=== PATIENT | female | born 1985 | race Hispanic/Latino ===

== ENCOUNTER 2016-06-12 20:46 | Emergency (ER) | payer OTHER ==
[2016-06-12] MEDS ORDERED: NAPROXEN 250 MG TAB As Ordered ONE (21:49)
--- NOTE | 2016-06-13 | REPUSA ---
CLINICAL HISTORY: Flank pain TECHNIQUE: Ultrasound of the pelvis was performed. Doppler spectral analysis and color flow imaging w ere performed to evaluate the adnexa. ULTRASOUND PELVIS : Uterus: 8.2 x 4.5 x 5.7 cm. Normal without masses. Endometrial stripe: 10 mm thickness. Right ovary: 3.9 x 2.3 x 3.4 cm. Normal size. No masses. Normal vascular flow. Left ovary: 2.0 x 1.2 x 1.4 cm. Normal size. No masses. Normal vascular flow. Pelvic fluid: Physiologic. IMPRESSION: Normal pelvic ultrasound.
--- NOTE | 2016-06-13 00:59 | EDDOCDS ---
Nurse's Notes [facility] Name: Lauren Mcgee Age: 30 yrs Sex: Female : 1985 Arrival Date: 06/12/2016 Time: 20:46 Bed TR8 Private MD: LENCHO Ramos Diagnosis: Pelvic and perineal pain-left Presentation: 06/12 20:52 Presenting complaint: Patient states: LLQ pain that's started 2 weeks ago. Acute dsf neurological deficits are not present. Mechanism of Injury: No Mechanism of Injury. Adult Sepsis Screening: The patient does not have new or worsening altered mentation. Patient's respiratory rate is less than 22. Systolic blood pressure is greater than 100. Patient has a qSOFA score of 0- Negative Sepsis Screen. Suicide/Homicide risk assessment- the patient denies having any suicidal and/or homicidal ideations and does not present with any other emotional, behavioral or mental health complaints. 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 Transition of care: patient was not received from another setting of care. 20:52 Acuity: YOANA Level 3 dsf 20:52 Method Of Arrival: Walkin/Carried/Asstd dsf Triage Assessment: 20:53 General: Appears in no apparent distress, Behavior is appropriate for age, cooperative. dsf Pain: Location: left lower quadrant Pain currently is 2 out of 10 on a pain scale. Pain does not radiate. Quality of pain is described as sharp. HIV screening NA for this visit active duty . Musculoskeletal: Circulation, motion, and sensation intact. 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 control daily (Last dose: 06/11/2016) - PMHx: none; - PSHx: none; - Social history: Smoking status: Patient states was never smoker of tobacco. No barriers to communication noted, The patient speaks fluent Serbian, Speaks appropriately for age. - Family history: Not pertinent. - : The pt / caregiver states he / she is not on anticoagulants. Home medication list is obtained from the patient. - Exposure Risk Screening:: None identified. Screenin/08 00:55 Screening information is obtained from the patient. Fall risk: No risks identified. cz Assistance ADL's: requires no assistance with activities of daily living. Abuse/DV Screen: The patient / caregiver reports he/she is: not in a situation that causes fear, pain or injury. Nutritional screening: No deficits noted. home support is adequate. Assessment: 00:55 Reassessment: Patient appears in no apparent distress at this time. Patient states cz symptoms have improved. Vital Signs: 06/12 20:47 BP 121 / 81; Pulse 81; Resp 18; Temp 96.9; Pulse Ox 100% ; Weight 63.5 kg; Height 5 ft. elp 2 in. (157.48 cm); Pain 3/10; 06/13 00:56 BP 122 / 76; Pulse 76; Resp 16; Temp 97.1(T); Pulse Ox 98% on R/A; cz 06/12 20:47 Body Mass Index 25.61 (63.50 kg, 157.48 cm) elp Vitals: 06/12 20:47 Log In Time: June 12, 2016 at 20:45. elp ED Course: 20:47 Patient visited by Sharri Davis PCA. elp 20:47 LENCHO Raoms is Private Physician. elp 20:47 Patient moved to Waiting elp 20:48 Patient visited by Sharri Davis PCA. elp 20:48 Patient moved to Pre RCE elp 20:53 Triage Initiated dsf 21:33 Patient moved to Triage 2 jf3 21:37 [facility]ant[facility] cc10 21:37 Carlos A Jolley DO is Attending Physician. cc10 21:37 Patient visited by Gonzalez Alcantar PA-C. cc10 21:37 Patient visited by Gonzalez Alcantar PA-C. cc10 21:52 Patient moved to TR1 mcp 21:52 UA Sent. jmv 22:14 Patient visited by Toño Lopez PCA. jmv 06/13 00:19 Patient moved to PR1 / 25 mcp 00:21 -US Pelvic Non-Ob Complete Returned. EDMS 00:24 LENCHO Ramos is Referral Physician. cc10 00:37 Patient moved to TR8 cz 00:55 The patient / caregiver is instructed regarding the plan of care and ED course. cz 00:55 No IV's were initiated during this patient's visit. No procedures done that require cz assistance. Administered Medications: 06/12 21:52 Drug: Naproxen 500 mg [naproxen 250 mg tablet (2 tabs)] Route: PO; [facility] Point of Care Testing: Urine : 22:13 hCG Reading: Negative; Control Reading: Positive; jmv 22:14 hCG Reading: Negative; cz Ranges: Order Results: Lab Order: UA; SPEC'M 06/12/16 21:59 Test: APPEARANCE, URINE; Value: HAZY; Range: CLEAR; Status: F Test: COLOR, URINE; Value: YELLOW; Range: YELLOW; Status: F Test: PH,URINE; Value: 6.0; Range: 5.0-9.0; Units: UNITS; Status: F Test: SPECIFIC GRAVITY URINE AUTO; Value: 1.026; Range: 1.002-1.035; Status: F Test: PROTEIN, URINE AUTO; Value: NEGATIVE; Range: NEGATIVE; Units: mg/dL; Status: F Test: GLUCOSE, URINE (UA) AUTO; Value: NEGATIVE; Range: NEGATIVE; Units: mg/dL; Status: F Test: KETONE, URINE AUTO; Value: NEGATIVE; Range: NEGATIVE; Units: mg/dL; Status: F Test: UROBILINOGEN, URINE AUTO; Value: 0.2; Range: 0.0-2.0; Units: mg/dL; Status: F Test: BILIRUBIN, URINE AUTO; Value: NEGATIVE; Range: NEGATIVE; Status: F Test: NITRITE, URINE AUTO; Value: NEGATIVE; Range: NEGATIVE; Status: F Test: LEUKOCYTE ESTERASE, URINE AUTO; Value: NEGATIVE; Range: NEGATIVE; Status: F Test: BLOOD, URINE BLOOD; Value: NEGATIVE; Range: NEGATIVE; Status: F Test: WBC, URINE AUTO; Value: 1; Range: 0-3; Units: /HPF; Status: F Test: RBC, URINE AUTO; Value: 3; Range: 0-3; Units: /HPF; Status: F Test: BACTERIA, URINE AUTO; Value: NEGATIVE; Range: NEGATIVE; Status: F Test: SQUAMOUS EPITHELIAL CELL UR AU; Value: 2; Range: 0-6; Units: /HPF; Status: F Test: MUCUS, URINE; Value: SMALL; Range: NEGATIVE; Status: F Test: HYALINE CAST, URINE AUTO; Value: 0; Range: 0-1; Units: /LPF; Status: F Radiology Order: -US Pelvic Non-Ob Complete Test: -US Pelvic Non-Ob Complete REASON FOR EXAMINATION: Adnexal Pain r/o Torsion; ; CLINICAL HISTORY: Flank pain; TECHNIQUE: Ultrasound of the pelvis was performed. Doppler spectral analysis and color flow imaging w; ere performed to evaluate the adnexa.; ; ULTRASOUND PELVIS :; ; Uterus: 8.2 x 4.5 x 5.7 cm. Normal without masses.; ; Endometrial stripe: 10 mm thickness.; ; Right ovary: 3.9 x 2.3 x 3.4 cm. Normal size. No masses. Normal vascular flow.; ; Left ovary: 2.0 x 1.2 x 1.4 cm. Normal size. No masses. Normal vascular flow.; ; Pelvic fluid: Physiologic.; ; IMPRESSION: Normal pelvic ultrasound.; ; Outcome: 06/13 00:24 Discharge ordered by Provider. cc10 00:55 Discharge Assessment: Patient awake, alert and oriented x 3. No cognitive and/or cz functional deficits noted. Patient verbalized understanding of disposition instructions. patient administered narcotics - no. The following High Risk Discharge criteria are identified: None. Discharged to home ambulatory. Condition: stable. Discharge instructions given to patient, Instructed on discharge instructions, follow up and referral plans. medication usage, Demonstrated understanding of instructions, medications, Pt was receptive of discharge instructions/ teaching. Prescriptions given X 1. Property :Personal belongings accompany Pt. 00:56 Ultrasound Study completed. cz 00:58 Patient left the ED. cz Signatures: Dispatcher [employer] EDCT Margret Grossman RN RN mcp Zecher, Calvin, RN RN cz Fuller, Desiree, RN RN Sharri Wilson, OPERATIONS RESEARCH DIRECTOR OPERATIONS RESEARCH DIRECTOR elp Gonzalez Alcantar, PA-C PA-C cc10 Viktor Arias,Toño Merritt RN, OPERATIONS RESEARCH DIRECTOR OPERATIONS RESEARCH DIRECTOR jmv MTDD
--- NOTE | 2016-06-13 00:59 | EDDOCDS ---
Physician Documentation [facility] Name: Lauren Mcgee Age: 30 yrs Sex: Female : 1985 Arrival Date: 06/12/2016 Time: 20:46 Bed TR8 Private MD: LENCHO Ramos Disposition: 06/13/16 00:24 Discharged to Home/Self Care. Impression: Pelvic and perineal pain - left. - Condition is Stable. - Discharge Instructions: Pelvic Pain, Female. - Prescriptions for Naprosyn 500 mg Oral Tablet - take 1 tablet by ORAL route 2 times per day take with food; 30 tablet. - Medication Reconciliation, Local Pharmacy Hours form. - Follow up: Emergency Department; When: As needed. Follow up: LENCHO Ramos; When: Call to arrange an appointment; Reason: Wound/Symptom Recheck, Recheck today's complaints, Worsening of conditions, Continuance of care. - Problem is an ongoing problem. - Symptoms have improved. Historical: - Allergies: no known allergies; - Home Meds: 1. control daily (Last dose: 06/11/2016) - PMHx: none; - PSHx: none; - Social history: Smoking status: Patient states was never smoker of tobacco. No barriers to communication noted, The patient speaks fluent Vietnamese, Speaks appropriately for age. - Family history: Not pertinent. - : The pt / caregiver states he / she is not on anticoagulants. Home medication list is obtained from the patient. - Exposure Risk Screening:: None identified. 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 2 in. (157.48 cm); Pain 3/10; 06/13 00:56 BP 122 / 76; Pulse 76; Resp 16; Temp 97.1(T); Pulse Ox 98% on R/A; cz 06/12 20:47 Body Mass Index 25.61 (63.50 kg, 157.48 cm) elp MDM: 06/12 21:42 UCG by Nursing ordered. cc10 21:43 -US Pelvic Non-Ob Complete Ordered. EDMS 21:43 Naproxen 500 mg PO once; administer with food or milk ordered. cc10 21:43 DUPLEX SCAN LIMITED (DOPPLER)+US Ordered. EDMS 21:43 UA Ordered. EDMS 22:16 UA Reviewed. cc10 06/13 00:33 Financial registration complete. hs2 Point of Care Testing: Urine : 06/12 22:13 hCG Reading: Negative; Control Reading: Positive; jmv 22:14 hCG Reading: Negative; cz Ranges: Administered Medications: 21:52 Drug: Naproxen 500 mg [naproxen 250 mg tablet (2 tabs)] Route: PO; [facility] Signatures: Dispatcher [employer] EDShaheen Lopez RN RN cz Fuller, Desiree, RN RN mary janef Gonzalez Alcantar, PALizeth PALizeth cc10 Amanda Rosales, Reg Reg hs2 Margret Grossman RN mcp MTDD
--- NOTE | 2016-06-15 12:14 | EDDOCDS ---
Nurse's Notes [facility] Name: Lauren Mcgee Age: 30 yrs Sex: Female : 1985 Arrival Date: 06/12/2016 Time: 20:46 Bed TR8 Private MD: LENCHO Ramos Diagnosis: Pelvic and perineal pain-left Presentation: 06/12 20:52 Presenting complaint: Patient states: LLQ pain that's started 2 weeks ago. Acute dsf neurological deficits are not present. Mechanism of Injury: No Mechanism of Injury. Adult Sepsis Screening: The patient does not have new or worsening altered mentation. Patient's respiratory rate is less than 22. Systolic blood pressure is greater than 100. Patient has a qSOFA score of 0- Negative Sepsis Screen. Suicide/Homicide risk assessment- the patient denies having any suicidal and/or homicidal ideations and does not present with any other emotional, behavioral or mental health complaints. 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 Transition of care: patient was not received from another setting of care. 20:52 Acuity: YOANA Level 3 dsf 20:52 Method Of Arrival: Walkin/Carried/Asstd dsf Triage Assessment: 20:53 General: Appears in no apparent distress, Behavior is appropriate for age, cooperative. dsf Pain: Location: left lower quadrant Pain currently is 2 out of 10 on a pain scale. Pain does not radiate. Quality of pain is described as sharp. HIV screening NA for this visit active duty . Musculoskeletal: Circulation, motion, and sensation intact. 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 control daily (Last dose: 06/11/2016) - PMHx: none; - PSHx: none; - Social history: Smoking status: Patient states was never smoker of tobacco. No barriers to communication noted, The patient speaks fluent Icelandic, Speaks appropriately for age. - Family history: Not pertinent. - : The pt / caregiver states he / she is not on anticoagulants. Home medication list is obtained from the patient. - Exposure Risk Screening:: None identified. Screenin/08 00:55 Screening information is obtained from the patient. Fall risk: No risks identified. cz Assistance ADL's: requires no assistance with activities of daily living. Abuse/DV Screen: The patient / caregiver reports he/she is: not in a situation that causes fear, pain or injury. Nutritional screening: No deficits noted. home support is adequate. Assessment: 00:55 Reassessment: Patient appears in no apparent distress at this time. Patient states cz symptoms have improved. Vital Signs: 06/12 20:47 BP 121 / 81; Pulse 81; Resp 18; Temp 96.9; Pulse Ox 100% ; Weight 63.5 kg; Height 5 ft. elp 2 in. (157.48 cm); Pain 3/10; 06/13 00:56 BP 122 / 76; Pulse 76; Resp 16; Temp 97.1(T); Pulse Ox 98% on R/A; cz 06/12 20:47 Body Mass Index 25.61 (63.50 kg, 157.48 cm) elp Vitals: 06/12 20:47 Log In Time: June 12, 2016 at 20:45. elp ED Course: 20:47 Patient visited by Sharri Davis PCA. elp 20:47 LENCHO Ramos is Private Physician. elp 20:47 Patient moved to Waiting elp 20:48 Patient visited by Sharri Davis PCA. elp 20:48 Patient moved to Pre RCE elp 20:53 Triage Initiated dsf 21:33 Patient moved to Triage 2 jf3 21:37 Gonzalez Alcantar [facility] cc[facility] 21:37 Carlos A Jolley DO is Attending Physician. cc10 21:37 Patient visited by Gonzalez Alcantar PA-C. cc10 21:37 Patient visited by Gonzalez Alcantar PA-C. cc10 21:52 Patient moved to TR1 mcp 21:52 UA Sent. jmv 22:14 Patient visited by Toño Lopez PCA. jmv 06/13 00:19 Patient moved to PR1 / 25 mcp 00:21 -US Pelvic Non-Ob Complete Returned. EDMS 00:24 LENCHO Ramos is Referral Physician. cc10 00:37 Patient moved to TR8 cz 00:55 The patient / caregiver is instructed regarding the plan of care and ED course. cz 00:55 No IV's were initiated during this patient's visit. No procedures done that require cz assistance. 04:05 [facility] Payment Agreement was scanned into [employer] and attached to record. hs2 08:15 T-Sheet-- Draft Copy was scanned into [employer] and attached to record. se 08:53 Radiology Report was scanned into [employer] and attached to record. gb Administered Medications: 06/12 21:52 Drug: Naproxen 500 mg [naproxen 250 mg tablet (2 tabs)] Route: PO; [facility] Point of Care Testing: Urine : 22:13 hCG Reading: Negative; Control Reading: Positive; jmv 22:14 hCG Reading: Negative; cz Ranges: Order Results: Lab Order: UA; SPEC'M 06/12/16 21:59 Test: APPEARANCE, URINE; Value: HAZY; Range: CLEAR; Status: F Test: COLOR, URINE; Value: YELLOW; Range: YELLOW; Status: F Test: PH,URINE; Value: 6.0; Range: 5.0-9.0; Units: UNITS; Status: F Test: SPECIFIC GRAVITY URINE AUTO; Value: 1.026; Range: 1.002-1.035; Status: F Test: PROTEIN, URINE AUTO; Value: NEGATIVE; Range: NEGATIVE; Units: mg/dL; Status: F Test: GLUCOSE, URINE (UA) AUTO; Value: NEGATIVE; Range: NEGATIVE; Units: mg/dL; Status: F Test: KETONE, URINE AUTO; Value: NEGATIVE; Range: NEGATIVE; Units: mg/dL; Status: F Test: UROBILINOGEN, URINE AUTO; Value: 0.2; Range: 0.0-2.0; Units: mg/dL; Status: F Test: BILIRUBIN, URINE AUTO; Value: NEGATIVE; Range: NEGATIVE; Status: F Test: NITRITE, URINE AUTO; Value: NEGATIVE; Range: NEGATIVE; Status: F Test: LEUKOCYTE ESTERASE, URINE AUTO; Value: NEGATIVE; Range: NEGATIVE; Status: F Test: BLOOD, URINE BLOOD; Value: NEGATIVE; Range: NEGATIVE; Status: F Test: WBC, URINE AUTO; Value: 1; Range: 0-3; Units: /HPF; Status: F Test: RBC, URINE AUTO; Value: 3; Range: 0-3; Units: /HPF; Status: F Test: BACTERIA, URINE AUTO; Value: NEGATIVE; Range: NEGATIVE; Status: F Test: SQUAMOUS EPITHELIAL CELL UR AU; Value: 2; Range: 0-6; Units: /HPF; Status: F Test: MUCUS, URINE; Value: SMALL; Range: NEGATIVE; Status: F Test: HYALINE CAST, URINE AUTO; Value: 0; Range: 0-1; Units: /LPF; Status: F Radiology Order: -US Pelvic Non-Ob Complete Test: -US Pelvic Non-Ob Complete REASON FOR EXAMINATION: Adnexal Pain r/o Torsion; ; CLINICAL HISTORY: Flank pain; TECHNIQUE: Ultrasound of the pelvis was performed. Doppler spectral analysis and color flow imaging w; ere performed to evaluate the adnexa.; ; ULTRASOUND PELVIS :; ; Uterus: 8.2 x 4.5 x 5.7 cm. Normal without masses.; ; Endometrial stripe: 10 mm thickness.; ; Right ovary: 3.9 x 2.3 x 3.4 cm. Normal size. No masses. Normal vascular flow.; ; Left ovary: 2.0 x 1.2 x 1.4 cm. Normal size. No masses. Normal vascular flow.; ; Pelvic fluid: Physiologic.; ; IMPRESSION: Normal pelvic ultrasound.; ; Outcome: 06/13 00:24 Discharge ordered by Provider. cc10 00:55 Discharge Assessment: Patient awake, alert and oriented x 3. No cognitive and/or cz functional deficits noted. Patient verbalized understanding of disposition instructions. patient administered narcotics - no. The following High Risk Discharge criteria are identified: None. Discharged to home ambulatory. Condition: stable. Discharge instructions given to patient, Instructed on discharge instructions, follow up and referral plans. medication usage, Demonstrated understanding of instructions, medications, Pt was receptive of discharge instructions/ teaching. Prescriptions given X 1. Property :Personal belongings accompany Pt. 00:56 Ultrasound Study completed. cz 00:58 Patient left the ED. cz Signatures: Dispatcher [employer] EDMS Margret Grossman RN RN mcp Zecher, Calvin, RN RN cz Marisel Marin, Reg Reg gb Gabriela Reed RN RN dsf Patchen, Erin, SCOREKEEPER SCOREKEEPER elp Ortiz, Gonzalez, PA-C PA-C cc10 Viktor Arias RN RN jf3 Amanda Rosales, Reg Reg hs2 Hoffert, Cherie seh Lopez, Toño, SCOREKEEPER SCOREKEEPER jmv Chart Complete MTDD
--- NOTE | 2016-06-15 12:14 | EDDOCDS ---
Physician Documentation [facility] Name: Lauren Mcgee Age: 30 yrs Sex: Female : 1985 Arrival Date: 06/12/2016 Time: 20:46 Bed TR8 Private MD: LENCHO Ramos Disposition: 06/13/16 00:24 Discharged to Home/Self Care. Impression: Pelvic and perineal pain - left. - Condition is Stable. - Discharge Instructions: Pelvic Pain, Female. - Prescriptions for Naprosyn 500 mg Oral Tablet - take 1 tablet by ORAL route 2 times per day take with food; 30 tablet. - Medication Reconciliation, Local Pharmacy Hours form. - Follow up: Emergency Department; When: As needed. Follow up: LENCHO Ramos; When: Call to arrange an appointment; Reason: Wound/Symptom Recheck, Recheck today's complaints, Worsening of conditions, Continuance of care. - Problem is an ongoing problem. - Symptoms have improved. Historical: - Allergies: no known allergies; - Home Meds: 1. control daily (Last dose: 06/11/2016) - PMHx: none; - PSHx: none; - Social history: Smoking status: Patient states was never smoker of tobacco. No barriers to communication noted, The patient speaks fluent Greek, Speaks appropriately for age. - Family history: Not pertinent. - : The pt / caregiver states he / she is not on anticoagulants. Home medication list is obtained from the patient. - Exposure Risk Screening:: None identified. 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 2 in. (157.48 cm); Pain 3/10; 06/13 00:56 BP 122 / 76; Pulse 76; Resp 16; Temp 97.1(T); Pulse Ox 98% on R/A; cz 06/12 20:47 Body Mass Index 25.61 (63.50 kg, 157.48 cm) elp MDM: 06/12 21:42 UCG by Nursing ordered. cc10 21:43 -US Pelvic Non-Ob Complete Ordered. EDMS 21:43 Naproxen 500 mg PO once; administer with food or milk ordered. cc10 21:43 DUPLEX SCAN LIMITED (DOPPLER)+US Ordered. EDMS 21:43 UA Ordered. EDMS 22:16 UA Reviewed. cc10 06/13 00:33 Financial registration complete. hs2 04:05 [facility] Payment Agreement was scanned into [employer] and attached to record. hs2 08:15 T-Sheet-- Draft Copy was scanned into [employer] and attached to record. [facility] 08:53 Radiology Report was scanned into [employer] and attached to record. Point of Care Testing: Urine : 06/12 22:13 hCG Reading: Negative; Control Reading: Positive; jmv 22:14 hCG Reading: Negative; cz Ranges: Administered Medications: 21:52 Drug: Naproxen 500 mg [naproxen 250 mg tablet (2 tabs)] Route: PO; [facility] Signatures: Dispatcher [employer] EDMS Shaheen Zapata RN RN cz Marisel Marin, Reg Reg gb Gabriela Reed RN RN dsf Gonzalez Alcantar, PA-C PA-C cc10 Amanda Rosales, Reg Reg hs2 Cherie Fuentes Mary RN [facility] The chart was reviewed and I authenticate all verbal orders and agree with the evaluation and treatment provided.Attachments: 06/13 04:05 [facility] Payment Agreement hs2 08:15 T-Sheet-- Draft Copy [facility] Chart Complete MTDD
--- NOTE | 2016-06-15 12:14 | EDDOCDS ---
Physician Documentation [facility] Name: Lauren Mcgee Age: 30 yrs Sex: Female : 1985 Arrival Date: 06/12/2016 Time: 20:46 Bed TR8 Private MD: LENCHO Ramos Disposition: 06/13/16 00:24 Discharged to Home/Self Care. Impression: Pelvic and perineal pain - left. - Condition is Stable. - Discharge Instructions: Pelvic Pain, Female. - Prescriptions for Naprosyn 500 mg Oral Tablet - take 1 tablet by ORAL route 2 times per day take with food; 30 tablet. - Medication Reconciliation, Local Pharmacy Hours form. - Follow up: Emergency Department; When: As needed. Follow up: LENCHO Ramos; When: Call to arrange an appointment; Reason: Wound/Symptom Recheck, Recheck today's complaints, Worsening of conditions, Continuance of care. - Problem is an ongoing problem. - Symptoms have improved. Historical: - Allergies: no known allergies; - Home Meds: 1. control daily (Last dose: 06/11/2016) - PMHx: none; - PSHx: none; - Social history: Smoking status: Patient states was never smoker of tobacco. No barriers to communication noted, The patient speaks fluent Polish, Speaks appropriately for age. - Family history: Not pertinent. - : The pt / caregiver states he / she is not on anticoagulants. Home medication list is obtained from the patient. - Exposure Risk Screening:: None identified. 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 2 in. (157.48 cm); Pain 3/10; 06/13 00:56 BP 122 / 76; Pulse 76; Resp 16; Temp 97.1(T); Pulse Ox 98% on R/A; cz 06/12 20:47 Body Mass Index 25.61 (63.50 kg, 157.48 cm) elp MDM: 06/12 21:42 UCG by Nursing ordered. cc10 21:43 -US Pelvic Non-Ob Complete Ordered. EDMS 21:43 Naproxen 500 mg PO once; administer with food or milk ordered. cc10 21:43 DUPLEX SCAN LIMITED (DOPPLER)+US Ordered. EDMS 21:43 UA Ordered. EDMS 22:16 UA Reviewed. cc10 06/13 00:33 Financial registration complete. hs2 04:05 [facility] Payment Agreement was scanned into [employer] and attached to record. hs2 08:15 T-Sheet-- Draft Copy was scanned into [employer] and attached to record. [facility] 08:53 Radiology Report was scanned into [employer] and attached to record. Point of Care Testing: Urine : 06/12 22:13 hCG Reading: Negative; Control Reading: Positive; jmv 22:14 hCG Reading: Negative; cz Ranges: Administered Medications: 21:52 Drug: Naproxen 500 mg [naproxen 250 mg tablet (2 tabs)] Route: PO; [facility] Signatures: Dispatcher [employer] EDMS Shaheen Zapata RN RN cz Marisel Marin, Reg Reg gb Gabriela Reed RN RN dsf Gonzalez Alcantar, PA-C PA-C cc10 Amanda Rosales, Reg Reg hs2 Cherie Fuentes Mary RN [facility] The chart was reviewed and I authenticate all verbal orders and agree with the evaluation and treatment provided.Attachments: 06/13 04:05 [facility] Payment Agreement hs2 08:15 T-Sheet-- Draft Copy [facility] Chart Complete MTDD
== END 2016-06-13 00:58 | disposition home or self-care (01) ==
LOC: M ED 20:46
DX: R10.2 Pelvic and perineal pain (principal); Z79.3 Long term (current) use of hormonal contraceptives

== ENCOUNTER 2017-02-09 09:53 | Outpatient (CLI) | payer OTHER ==
[~2017-02-09] VITALS: Ht 160 cm; Wt 87.0 kg
[2017-02-09 10:13] VITALS: BP 106/66
[2017-02-09] MEDS ORDERED: LR 1,000 ML IV ONE (11:00)
[2017-02-09 12:02] VITALS: BP 109/70
[2017-02-09] MEDS ORDERED: PRENTAB9 PO (13:06)
== END 2017-02-09 12:35 | disposition home or self-care (01) ==
LOC: M LDO 09:53
PROVIDERS: ATTEND Obstetrics & Gynecology
DX: O26.893 Other specified pregnancy related conditions, third trimester (principal); Z3A.37 37 weeks gestation of pregnancy; R42 Dizziness and giddiness; O62.0 Primary inadequate contractions

== ENCOUNTER 2017-03-04 05:51 | Inpatient (IN) | payer OTHER ==
[2017-03-04] VITALS (15 sets, daily range): BP systolic 102–133; BP diastolic 56–78
[~2017-03-04] VITALS: Ht 160 cm; Wt 91.7 kg
[~2017-03-04 05:51] MED LIST: PRENTAB9 PO
[2017-03-04] MEDS ORDERED: miSOPROStol 50 MCG 1/2 TAB (S0191) PO SCH (08:30)
[2017-03-04 08:40] LABS: MEAN CORPUSCULAR HEMOGLOBIN 30.7 pg (27.0-33.0); MEAN CORPUSCULAR HGB CONC 34.3 g/dl (32.0-36.5); MEAN CORPUSCULAR VOLUME 89.5 fl (80.0-96.0); RED CELL DISTRIBUTION WIDTH 14.4 % (11.5-14.5); WHITE BLOOD COUNT 9.7 10^3/uL (4.0-10.0)
[2017-03-04] MEDS ORDERED: OXYTOCIN 30 UNITS IN 0.9% NaCl 500ML IV BAG (J2590) As Ordered ONE (14:26)
[2017-03-04] MEDS ORDERED: OXYTOCIN DRIP 30 UNITS in APPROPRIATE DILUENT 1 EA IV SCH (14:30)
[2017-03-04] MEDS: LR 1,000 ML IV SCH ×2 (14:37→22:22)
[2017-03-04] MEDS ORDERED: PROMETHAZINE INJ 25 MG/ML VIAL (J2550) IV ONE (16:30)
[2017-03-04] MEDS ORDERED: BUTORPHANOL 2 MG/ML INJ (J0595) IV ONE (16:30)
[2017-03-04] MEDS ORDERED: FENTANYL 2MCG/ML ROPIVACAINE 0.2% IN 0.9% NACL 200ML IVBAG As Ordered ONE (21:10)
[2017-03-04] MEDS ORDERED: ePHEDrine SULFATE 25 MG/5 ML(5MG/ML) SYRINGE As Ordered ONE ×2 (23:13→23:26)
[2017-03-04] MEDS ORDERED: ONDANSETRON 4MG/2ML VIAL (J2405) IV PRN (23:30)
[2017-03-04] MEDS ORDERED: ePHEDrine SULFATE 25 MG/5 ML(5MG/ML) SYRINGE IV PRN (23:30)
[2017-03-04] MEDS ORDERED: FENTANYL/ROPIVACAINE/NACL BAG 200 ML EPIDURAL SCH (23:30)
[2017-03-04] MEDS ORDERED: NALOXONE INJ 0.4 MG/1 ML VIAL (J2310) IV PRN (23:30)
[2017-03-04] MEDS ORDERED: REFRIGERATOR IV KEYS XX PRN (23:30)
[2017-03-04] MEDS ORDERED: EPIDURAL COMMENT XX SCH (23:30)
[2017-03-04] MEDS ORDERED: diphenhydrAMINE INJ 50MG/ML VIAL (J1200) IV PRN (23:30)
[2017-03-04] MEDS ORDERED: LACTATED RINGER'S 1000 ML IV PRN (23:30)
[2017-03-04] MEDS ORDERED: EPIDURAL/PCA KEYS XX PRN (23:30)
[2017-03-05] VITALS (21 sets, daily range): BP systolic 101–139; BP diastolic 55–83
--- NOTE | 2017-03-05 11:33 | IPNPDOC ---
Text Note Date of Service The patient was seen on 03/05/17. NOTE SBAR from Dr Lugo at ~0830 31yo at 41+1wks EGA here for late term IOL. Cx was 7cm at 0400 and 0700 today, IUPC placed at last check. VS WNL some pain, epidural at 8 only due to BP issues after it was placed SVE: /-1, unchanged but MVU's have been 100's, <200 since IUPC placement, pit at 12 mu/min FHT: min-mod jerome, +accels, Cat 2 [place]: reg ctxs A/P: Active labor but feared arrest of dilation. Reassuring maternal/ status. Will cont to incr the pitocin at reg intervals to hopefully achieve adequacy. Plan for repeat SVE in 2-3 hrs or sooner, prn. If no change, then I will rec at that time for arrest of dilation whether adequate or inadequate MVU's. If the FHT does not allow to cont to incr the pitocin then I will rec at that time. D/W RN. Sessions Rosette CROOKS, I+O Rosette ZHENG, I+O Vital Signs Date Time Temp Pulse Resp B/P (MAP) Pulse Ox O2 Delivery O2 Flow Rate FiO2 03/05/17 08:35 98 16 101/59 (73) 03/05/17 08:03 98.5 03/04/17 16:33 Room Air SESSIONS,YOUSIF Peacock MD Mar 05, 2017 11:33
[2017-03-05] MEDS ORDERED: ceFAZolin 2 GM/D5W 50 ML IV BAG (J0690) As Ordered ONE (14:12)
[2017-03-05] MEDS ORDERED: BICITRA 30ML SOLN UDC As Ordered ONE (14:13)
[2017-03-05] MEDS ORDERED: AZITHROMYCIN INJ 500MG VIAL (J0456) As Ordered ONE (14:13)
[2017-03-05] MEDS ORDERED: BICITRA 30ML SOLN UDC PO ONE (14:15)
[2017-03-05] MEDS ORDERED: AZITHROMYCIN INJ 500 MG, VIAL MATE ADAPTER 1 EACH in D5W 250 ML IV ONE (14:15)
--- NOTE | 2017-03-05 14:20 | IPNPDOC ---
Text Note Date of Service The patient was seen on 03/05/17. NOTE NST Cat 2, a few late decels, able to resuscitate successfully. Mod jerome and accels persist. Despite adequate MVU's last 2-3 hrs, no change on cx exam. delivery indicated and informed consent obtained, all ??'s answered. Azithro and Ancef and Bicitra prior to incision. D/C pit now. Hct 33.2, PLT 208, ant placenta Anesthesia and OR team mobilized. Sessions VS,Rosette, I+O VS, Rosette I+O Vital Signs Date Time Temp Pulse Resp B/P (MAP) Pulse Ox O2 Delivery O2 Flow Rate FiO2 03/05/17 08:35 98 16 101/59 (73) 03/05/17 08:03 98.5 03/04/17 16:33 Room Air SESSIONS,YOUSIF Peacock MD Mar 05, 2017 14:20
[2017-03-05] MEDS ORDERED: LIDOCAINE 2% W/EPIN INJ 20ML **PRES FREE As Ordered ONE (14:57)
[2017-03-05] MEDS ORDERED: KETOROLAC 60 MG/2 ML VIAL (J1885) As Ordered ONE (14:57)
[2017-03-05] MEDS ORDERED: OXYTOCIN INJ 10 UNITS/ML VIAL (J2590) As Ordered ONE (14:57)
[2017-03-05] MEDS ORDERED: MORPHINE PRES-FREE INJ 10 MG/10 ML VIAL (J2274) As Ordered ONE (14:57)
[2017-03-05] MEDS ORDERED: PHENYLephrine HCL 500 MCG/5 ML (100MCG/ML) SYRINGE (J2370) As Ordered ONE ×2 (14:57→15:34)
[2017-03-05] MEDS ORDERED: dexameTHASONE 4 MG/ML 1ML VIAL (J1100) As Ordered ONE (14:57)
[2017-03-05] MEDS ORDERED: SODIUM BICARBONATE 8.4% INJ 50 ML SYRINGE As Ordered ONE (14:57)
[2017-03-05] MEDS ORDERED: ePHEDrine SULFATE 25 MG/5 ML(5MG/ML) SYRINGE As Ordered ONE (14:57)
[2017-03-05] MEDS ORDERED: ONDANSETRON 4MG/2ML VIAL (J2405) As Ordered ONE (14:57)
[2017-03-05] MEDS ORDERED: METHYLERGONOVINE MALEATE 0.2 MG/ML VIAL (J2210) IM ONE (15:00)
[2017-03-05] MEDS ORDERED: MEPERIDINE 50 MG/ML 1ML VIAL (J2175) As Ordered ONE (15:07)
[2017-03-05] MEDS ORDERED: ONDANSETRON 4MG/2ML VIAL (J2405) IV PRN ×2 (15:20→16:30)
[2017-03-05] MEDS ORDERED: NALBUPHINE HCL 10 MG/ML AMP (J2300) IV PRN ×2 (15:20→16:30)
[2017-03-05] MEDS ORDERED: NALOXONE INJ 0.4 MG/1 ML VIAL (J2310) IV PRN ×2 (15:20)
[2017-03-05] MEDS ORDERED: METOCLOPRAMIDE INJ 10MG/2ML VIAL (J2765) IV PRN ×2 (15:20→16:15)
[2017-03-05] MEDS ORDERED: miSOPROStol 200 MCG TAB (S0191) As Ordered ONE (15:23)
[2017-03-05] MEDS ORDERED: OXYTOCIN 30 UNITS IN 0.9% NaCl 500ML IV BAG (J2590) As Ordered ONE (15:26)
[2017-03-05 15:36] LABS: BASO % 0.1 % (0.0-1.0); IMMATURE GRANULOCYTE % 1.1 % (0-0); LYMPH # 0.8 10^3/uL (1.5-6.5); LYMPH % 4.6 % (24.0-44.0); MEAN CORPUSCULAR HEMOGLOBIN 31.2 pg (27.0-33.0); MEAN CORPUSCULAR HGB CONC 34.1 g/dl (32.0-36.5); MEAN CORPUSCULAR VOLUME 91.7 fl (80.0-96.0); MONO # 0.8 10^3/uL (0.0-0.8); MONO % 4.8 % (0.0-5.0); NEUTROPHILS # 15.7 10^3/uL (1.8-7.7); NEUTROPHILS % 89.4 % (36.0-66.0); PLATELET COUNT, AUTOMATED 196 10^3/uL (150-450); RED CELL DISTRIBUTION WIDTH 14.6 % (11.5-14.5); WHITE BLOOD COUNT 17.5 10^3/uL (4.0-10.0)
[2017-03-05 15:41] LABS: ADD MORPHOLOGY? NO
[2017-03-05] MEDS ORDERED: METHYLERGONOVINE MALEATE 0.2 MG TAB PO PRN (16:15)
[2017-03-05] MEDS ORDERED: PERCOCET 5MG/325MG TAB PO PRN ×2 (16:15)
[2017-03-05] MEDS ORDERED: RHOGAM 300 MCG (1500 IU) INJ (J2790) IM SCH (16:15)
[2017-03-05] MEDS ORDERED: MEASLES,MUMPS,RUBELLA VACCINE INJ (MMR-II) (90707) SC SCH (16:15)
[2017-03-05] MEDS ORDERED: miSOPROStol 200 MCG TAB (S0191) PR ONE (16:15)
[2017-03-05] MEDS ORDERED: METHYLERGONOVINE MALEATE 0.2 MG/ML VIAL (J2210) As Ordered ONE (16:24)
[2017-03-05] MEDS ORDERED: LR 1,000 ML IV SCH (16:30)
[2017-03-05] MEDS ORDERED: fentaNYL 100 MCG/2 ML INJECTION (J3010) IV PRN (16:30)
[2017-03-05] MEDS ORDERED: OXYTOCIN DRIP 30 UNITS in APPROPRIATE DILUENT 1 EA IV SCH ×2 (16:30→17:00)
[2017-03-05] MEDS ORDERED: MEPERIDINE INJ 25 MG/ML VIAL (J2175) IV PRN (16:30)
[2017-03-05] MEDS: LR 1,000 ML IV SCH (17:00)
[2017-03-05] MEDS: METHYLERGONOVINE MALEATE 0.2 MG TAB PO SCH ×2 (19:17→23:03)
[2017-03-05 19:47] LABS: MEAN CORPUSCULAR HEMOGLOBIN 31.3 pg (27.0-33.0); MEAN CORPUSCULAR HGB CONC 34.8 g/dl (32.0-36.5); MEAN CORPUSCULAR VOLUME 89.8 fl (80.0-96.0); RED CELL DISTRIBUTION WIDTH 14.7 % (11.5-14.5); WHITE BLOOD COUNT 21.1 10^3/uL (4.0-10.0)
[2017-03-05] MEDS: DOCUSATE SODIUM 100 MG CAP PO SCH (21:00)
[2017-03-05] MEDS ORDERED: DOCUSATE SODIUM 100 MG CAP PO SCH (21:00)
[2017-03-06] VITALS (13 sets, daily range): BP systolic 89–103; BP diastolic 50–65
[2017-03-06] MEDS: LR 1,000 ML IV SCH (01:00)
[2017-03-06] MEDS: METHYLERGONOVINE MALEATE 0.2 MG TAB PO SCH ×3 (02:28→11:21)
[2017-03-06 06:53] LABS: MEAN CORPUSCULAR HEMOGLOBIN 31.1 pg (27.0-33.0); MEAN CORPUSCULAR HGB CONC 34.3 g/dl (32.0-36.5); MEAN CORPUSCULAR VOLUME 90.7 fl (80.0-96.0); RED CELL DISTRIBUTION WIDTH 14.8 % (11.5-14.5); WHITE BLOOD COUNT 16.4 10^3/uL (4.0-10.0)
[2017-03-06] MEDS ORDERED: diphenhydrAMINE 25 MG CAP PO ONE (08:30)
[2017-03-06] MEDS ORDERED: ACETAMINOPHEN TAB 650MG DOSE (2X325MG) PO ONE (08:30)
--- NOTE | 2017-03-06 08:33 | IPNPDOC ---
Text Note Date of Service The patient was seen on 03/06/17. NOTE POD1 prog note States feeling well, but does have complaints of significant swelling in her wrists/hands and ankles. No heavy VB. Pain somewhat controlled but had sweating and slight nausea with percocet overnight, does not want this again. Ambulatory. Bonding well and breast feeding well. VSSAF CTAB RRR Inc CDI Ut at U-2, firm Ext signif swelling, no pain Yest 194 HCT 24.7, Plt 173 Today 0600 Hct 20.4, Plt 140 a/p: Signif EBL acutely at time of . Now equilibrating and with CBC at this level I rec 2 units PRBC's. Pt agrees. Tylenol/Benadryl 30 min prior. Also having issues with pain control, did not like percocet. Will switch to [place], first dose 1/2 tab to see how she reacts. Also will start toradol as is not clinically bleeding, just catching up from her operative loss. CBC today 1600. Sessions VS,Rosette, I+O VSRosette I+O Laboratory Tests 03/05/17 19:39 Red Blood Count 2.75 L, Mean Corpuscular Volume 89.8, Mean Corpuscular Hemoglobin 31.3, Mean Corpuscular Hemoglobin Concent 34.8, Red Cell Distribution Width 14.7 H 03/06/17 06:41 Red Blood Count 2.25 L, Mean Corpuscular Volume 90.7, Mean Corpuscular Hemoglobin 31.1, Mean Corpuscular Hemoglobin Concent 34.3, Red Cell Distribution Width 14.8 H Vital Signs Date Time Temp Pulse Resp B/P (MAP) Pulse Ox O2 Delivery O2 Flow Rate FiO2 03/06/17 06:40 98.3 104 18 97/54 (68) 98 Room Air I&O- Last 24 Hours up to 6 AM 03/07/17 05:59 Output Total 275 ml Balance -275 ml SESSIONS,YOUSIF Peacock MD Mar 06, 2017 08:33
[2017-03-06] MEDS ORDERED: NORCO, ANEXSIA 5/325MG TABLET (HYDROcodone/ACETAMINOPHEN) PO PRN ×2 (08:45)
[2017-03-06] MEDS: KETOROLAC 30 MG/ML VIAL (J1885) IV SCH ×3 (08:52→21:06)
[2017-03-06] MEDS: PRENATAL VITAMINS CHEWABLE TABLET PO SCH (08:53)
[2017-03-06] MEDS: DOCUSATE SODIUM 100 MG CAP PO SCH ×2 (08:53→21:05)
[2017-03-06] MEDS: NS 1,000 ML IV SCH (10:28)
--- NOTE | 2017-03-06 10:49 | RO ---
DATE OF OPERATION: 03/05/2017 SURGEON: Car Rollins MD CAR CLEANING SUPERVISOR: Harley Lucas DO PREOPERATIVE DIAGNOSES: Arrest of dilation at 7 cm despite adequate contractions. POSTOPERATIVE DIAGNOSES: Arrest of dilation at 7 cm despite adequate contractions with the addition of occipitoposterior and hemorrhage. ANESTHESIA: Epidural. ESTIMATED BLOOD LOSS: 1500 mL. DRAINS: 50 mL clear urine in the cervantes catheterization at the end of the procedure. FLUIDS: 3000 mL of lactated Ringer and 250 mL of albumin. OPERATIVE PROCEDURE: Primary low transverse section. PREOPERATIVE ANTIBIOTICS: 500 mg azithromycin and 2 grams Ancef. SPECIMENS: None. INDICATION: The patient was induced for approximately 1-1/2 days. Early this morning, was found to be 7 cm persistently, and intrauterine pressure catheter (IUPC) was placed. Over most of the morning and early afternoon, we were finally able to obtain adequate [place] units; and over approximately 3 hours, she did not change her cervix once adequacy was achieved. She remained 7 cm. Therefore , was consented to undergo a primary delivery. FINDINGS: A Pfannenstiel skin incision and low transverse uterine incision, female, scores 8 and 9, clear fluid, 9 pounds, 4080 grams, hemorrhage was significant bleeding from all incisional edges at the uterus, which required multiple extra suturing, including a right [place]. She also received Methergine intramuscular (IM) once and Cytotec 800 mg MT end of the case. Hematocrit towards the end of the case was 27.6, and platelets were 196, which I am sure will significantly drop before tomorrow. The current plan is a complete blood count (CBC) at 8 o'clock tonight. The patient had a second IV placed during the case, and the type and cross was performed for 2 units of packed red blood cells. DESCRIPTION OF OPERATION: The patient was taken to the operating room with an IV in place and placed in the dorsal supine position with a leftward tilt, and her epidural was being bolused throughout. She already had a Cervantes catheter. She was prepped and draped in normal sterile fashion. Just prior to leaving the room to go to the operating room (OR), the heart tones were normal. She was prepped and draped in normal sterile fashion after the surgeons scrubbed their hands, and a pinch test revealed an adequate epidural. A Pfannenstiel skin incision was performed down to the layer of the fascia, which was nicked in the midline and extended the extent of the skin incision. Magy clamps were used to elevate the superior edge of the fascial incision, and the underlying rectus muscles were dissected off sharply. This was repeated inferiorly without difficulty. The rectus muscles were in the midline. The peritoneum was identified, breeched with the surgeon's digit, and a quick anterior abdominal exploration revealed no scar tissue. The peritoneal window was then extended bilaterally with a stretching maneuver, and a bladder blade was placed into the lower abdomen. A bladder flap was easily created, and a low transverse uterine incision was performed, including the amniotomy, which confirmed clear fluid. We elevated the infant's head and flexed the head, which was noted to be in a straight occipitoposterior position. With fundal pressure, we then delivered the head easily through the incision. The shoulders and abdomen were then delivered. Good tone and spontaneous cry noted. The cord was clamped times two and cut, and the was handed off to the awaiting resuscitation team. Cord blood was obtained. The placenta was then delivered with traction and fundal massage. It was noted to be intact. The uterus was delivered through the uterine incision, placed on the abdominal wall, wrapped in a warm sponge, and cleared of all clots and debris and membranes with two dress sponges. We then closed the uterus in standard fashion from left to right with a running locked suture of #0 Vicryl. Her bleeding from the incisional edges was brisk, and I performed an imbrication stitch from left to right with a running #0 Monocryl. There was a slight extension at the right side that required several figure-of-8 sutures to obtain hemostasis, and there was a significant amount of serosal edge bleeding, as well, that required a significant amount of Bovie cautery. Eventual hemostasis was obtained with several figure-of-8 sutures across the incision, and because of the serosal edge bleeding noted, I opted to put the vesicouterine peritoneum edges back together with a running #3-0 Vicryl. Hemostasis was assured. The uterus was then placed back into the abdomen. The colic gutters were inspected bilaterally. A small amount of blood was removed. With the uterus back in its anatomical position, we confirmed that hemostasis was, indeed, present, and there were no hematomas or any kind of tissue under tension noted. While the uterus was out, she had normal fallopian tubes and ovaries. While we were closing the uterus, a dose of Methergine 0.2 mg IM times one was given, and anesthesiologist let us know that he had to give a few doses of pressors and a significant amount of crystalloid to maintain her blood pressure and keep her heart rate down. The peritoneum was then closed with running #3-0 Vicryl. The rectus bellies were in good shape with no hemorrhagic edges, and the fascia was closed with a running # 0 Vicryl from left to right without difficulty. The subcutaneous tissue was copiously irrigated and made to be hemostatic and closed with the #2-0 Vicryl from left to right. The skin was closed with a running #4-0 Monocryl in subcuticular fashion from left to right. Steri-Strips were placed and a pressure dressing, as well. I froglegged the patient and did a bimanual examination with a significant amount of uterine massage, and the uterus was firm at U with another 300 mL of clot, which came out at that point, which we added to the prior-stated estimated blood loss of 1200 mL for a now new total of 1500. I placed 800 mcg of Cytotec in the patient's rectum and again massaged her uterus with no additional bleeding noted from the vagina. All counts were correct prior to the closure of any cavity, including sponge, needle, and instruments. The patient will get a complete blood count (CBC) tonight at 8 o'clock and will be nothing by mouth until then with no Toradol given or ordered at this point. ALTOND
[2017-03-06 16:00] LABS: MEAN CORPUSCULAR HEMOGLOBIN 30.4 pg (27.0-33.0); MEAN CORPUSCULAR HGB CONC 33.8 g/dl (32.0-36.5); RED CELL DISTRIBUTION WIDTH 15.6 % (11.5-14.5); WHITE BLOOD COUNT 16.2 10^3/uL (4.0-10.0)
[2017-03-07] MEDS ORDERED: NORCO, ANEXSIA 5/325MG TABLET (HYDROcodone/ACETAMINOPHEN) PO ONE (02:15)
[2017-03-07] MEDS: KETOROLAC 30 MG/ML VIAL (J1885) IV SCH (02:52)
[2017-03-07] MEDS: IBUPROFEN 800 MG TAB PO SCH ×3 (05:16→21:28)
[2017-03-07 05:57] VITALS: BP 99/57
--- NOTE | 2017-03-07 07:02 | IPNPDOC ---
Text Note Date of Service The patient was seen on 03/07/17. NOTE POD2 prog note, delivered in the afternoon. S/P 2 units blood yesterday States feeling well. No heavy VB. NO issues with [place] overnight. Voiding. Ambulatory. Bonding well and breast feeding well. VSSAF CTAB RRR Inc CDI Ut at U-2, firm Ext signif swelling improving slightly Yest evening post transfusion HCT 27.8. A/P: Doing well. Cont Motrin and [place]. Desires to stay until , will plan on D/C tomorrow AM. Brst pump rx given. Sessions Rosette CROOKS, I+O VSRosette I+O Laboratory Tests 03/06/17 15:53 Red Blood Count 3.09 L, Mean Corpuscular Volume 90.0, Mean Corpuscular Hemoglobin 30.4, Mean Corpuscular Hemoglobin Concent 33.8, Red Cell Distribution Width 15.6 H Vital Signs Date Time Temp Pulse Resp B/P (MAP) Pulse Ox O2 Delivery O2 Flow Rate FiO2 03/07/17 05:57 96.9 83 18 99/57 (71) 03/07/17 02:33 Room Air 03/06/17 18:00 96 SESSIONS,YOUSIF Peacock MD Mar 07, 2017 07:02
[2017-03-07] MEDS: NS 1,000 ML IV SCH (08:20)
[2017-03-07] MEDS: DOCUSATE SODIUM 100 MG CAP PO SCH ×2 (09:52→21:28)
[2017-03-07] MEDS: PRENATAL VITAMINS CHEWABLE TABLET PO SCH (09:52)
[2017-03-07] MEDS ORDERED: IBUPROFEN 800 MG TAB PO SCH (11:00)
[2017-03-07 18:24] VITALS: BP 127/59
[2017-03-08] MEDS: IBUPROFEN 800 MG TAB PO SCH (05:27)
[2017-03-08 05:57] VITALS: BP 107/64
--- NOTE | 2017-03-08 07:38 | IPNPDOC ---
Text Note Date of Service The patient was seen on 03/08/17. NOTE POD3 prog note, delivered in the afternoon. S/P 2 units blood on POD1 States feeling well. No heavy VB. NO issues with significant pain. Voiding. Ambulatory. Bonding well and breast feeding well. VSSAF CTAB RRR Inc CDI Ut at U-2, firm Ext signif swelling improving post transfusion HCT 27.8. A/P: Doing well. D/C. Brst pump rx given. Sessions VS,Rosette, I+O VSRosette, I+O Vital Signs Date Time Temp Pulse Resp B/P (MAP) Pulse Ox O2 Delivery O2 Flow Rate FiO2 03/08/17 05:57 97.6 68 19 107/64 (78) 03/07/17 18:24 Room Air 03/06/17 18:00 96 SESSIONS,YOUSIF Peacock MD Mar 08, 2017 07:38
--- NOTE | 2017-03-08 07:42 | DS.PDOC ---
Discharge Summary General Date of Admission Mar 04, 2017 at 05:51 Date of Discharge [id number] Discharge Summary PROCEDURES PERFORMED DURING STAY: Primary Delivery ADMITTING DIAGNOSIS: 1. Induction; post-dates DISCHARGE DIAGNOSES: 1. Healthy infant 2. Arrest of dilation 3. Intra-op hemorrhage 4. Transfusion 2 units PRBC's HOSPITAL COURSE: Admitted for scheduled induction. Arrested at 7 cm despite adequate MVU's. complicated by 1500 intraop hemorrhage. 2 units given the day after surgery. Did well thereafter. DISCHARGE MEDICATIONS: Motrin, Percocet, Colace, Lanolin, Tylenol, Nor QD Physical exam: see note from this morning LABORATORY DATA: Please see below. ACTIVITY: as tolerated. Nothing in vagina for 6 weeks. No bathing for 4 weeks. No driving for 2 weeks. DIET: regular DISPOSITION:stable TIME SPENT ON DISCHARGE: Greater than 15 minutes. Sessions Vital Signs/I&Os Vital Signs Date Time Temp Pulse Resp B/P (MAP) Pulse Ox O2 Delivery O2 Flow Rate FiO2 03/08/17 05:57 97.6 68 19 107/64 (78) 03/07/17 18:24 Room Air 03/06/17 18:00 96 Discharge Medications Scheduled Multivitamins/ ( 27-0.8 mg) 1 Tab Tab, 1 TAB PO DAILY, (Reported ) Allergies Coded Allergies: No Known Allergies (Unverified , 02/09/17) SESSIONSYOUSIF MD Mar 08, 2017 07:42
[2017-03-08] MEDS: PRENATAL VITAMINS CHEWABLE TABLET PO SCH (08:06)
[2017-03-08] MEDS: DOCUSATE SODIUM 100 MG CAP PO SCH (08:07)
[2017-03-08] MEDS ORDERED: IBUP-1114 PO (10:19)
[2017-03-08] MEDS ORDERED: NORC1TAB4 PO (10:19)
[2017-03-08] MEDS ORDERED: COLA100C5 PO (10:19)
== END 2017-03-08 10:45 | disposition home or self-care (01) | DRG 765 ==
LOC: M LDI 05:51 → M OBS 03-05 17:37
PROVIDERS: ADMIT Student in an Organized Health Care Education/Training Program; ATTEND Student in an Organized Health Care Education/Training Program
PROC: 3E0P7VZ Introduction of Hormone into Female Reproductive, Via Natural or Artificial Opening (ICD-10-PCS; 2017-03-04)
PROC: 3E033VJ Introduction of Other Hormone into Peripheral Vein, Percutaneous Approach (ICD-10-PCS; 2017-03-04)
PROC: 10D00Z1 Extraction of Products of Conception, Low, Open Approach (ICD-10-PCS; principal; 2017-03-05)
PROC: 30233N1 Transfusion of Nonautologous Red Blood Cells into Peripheral Vein, Percutaneous Approach (ICD-10-PCS; 2017-03-06)
DX: O48.0 Post-term pregnancy (principal); O72.1 Other immediate postpartum hemorrhage; Z37.0 Single live birth; Z3A.41 41 weeks gestation of pregnancy; O62.0 Primary inadequate contractions; O64.0XX0 Obstructed labor due to incomplete rotation of fetal head, not applicable or unspecified

== ENCOUNTER 2017-08-18 11:23 | Emergency (ER) | payer OTHER ==
[2017-08-18] MEDS: KETOROLAC 30 MG/ML VIAL (J1885) IM ×2 (14:39)
[2017-08-18 14:47] LABS: INFLUENZA A AMPLIFICATION NEGATIVE (NEGATIVE); INFLUENZA B AMPLIFICATION NEGATIVE (NEGATIVE)
== END 2017-08-18 15:03 | disposition home or self-care (01) ==
LOC: M ED 11:23
DX: J06.9 Acute upper respiratory infection, unspecified (principal)
CPT/HCPCS: J1885